=== PATIENT | female | born 1975 | race Caucasian/White ===

== ENCOUNTER 2017-01-16 08:30 | Outpatient (CLI) | payer MEDICAID ==
[~2017-01-16] VITALS: Wt 110.9 kg
[2017-01-16] MEDS ORDERED: CONTRAVE1 TER PO (09:12)
[2017-01-16] MEDS ORDERED: GLUCOPHAGE500 MG/TAB PO (09:13)
[2017-01-16] MEDS ORDERED: LIPITOR 40MG TA40 MG PO (09:13)
[2017-01-16] MEDS ORDERED: FIORICET 325 MG1 TA1 PO (09:13)
[2017-01-16] MEDS ORDERED: CARDIZEM120 MG PO (09:14)
[2017-01-16 09:18] VITALS: BP 122/72; PULSE 72
[2017-01-16 11:00] VITALS: BP 129/85; PULSE 114
== END 2017-01-16 11:34 | disposition home or self-care (01) ==
LOC: COL.CAR 08:30
DX: R42 Dizziness and giddiness (principal); R00.0 Tachycardia, unspecified; R00.2 Palpitations; E78.5 Hyperlipidemia, unspecified; E66.2 Morbid (severe) obesity with alveolar hypoventilation; E28.2 Polycystic ovarian syndrome; F43.10 Post-traumatic stress disorder, unspecified; G44.209 Tension-type headache, unspecified, not intractable; G89.29 Other chronic pain; Z79.84 Long term (current) use of oral hypoglycemic drugs

== ENCOUNTER → 2019-02-23 | Outpatient (CLI) | payer OTHER ==
[~2019-02-23] MED LIST: CARDIZEM CD 12120 MG PO; CARDIZEM120 MG PO; CONTRAVE1 TER PO; EFFEXOR-XR150 MG PO; FIORICET 325 MG1 TA1 PO; GLUCOPHAGE500 MG/TAB PO; LIPITOR 40MG TA40 MG PO; LIPITOR 80MG80 MG PO; MAG-OX 400400 MG/TAB PO; PROAIR HFA0.09 MG/AC IH; TOPAMAX 25MG25 M1 PO
== END ==
LOC: COL.PUL 12:32
DX: R06.02 Shortness of breath (principal)

== ENCOUNTER → 2019-03-29 | Outpatient (CLI) | payer OTHER | LOC: COL.PUL 12:25 | DX: R06.02 Shortness of breath (principal) | CPT/HCPCS: J7674 ==